=== PATIENT | male | born 1980 | race Caucasian/White ===

== ENCOUNTER 2020-07-04 18:45 | Emergency (ER) | payer SELFPAY ==
--- NOTE | 2020-07-04 18:55 | ER Document Report ---
ED Medical Screen (RME) - General Chief Complaint: Rectal Pain Stated Complaint: RECTAL PAIN Time Seen by Provider: 07/04/20 18:48 Primary Care Provider: [facility] [Provider Group] - Follow up as needed KATIE FELIX MD [Primary Care Provider] - Follow up as needed JOELLE BEST MD [ACTIVE STAFF] - Follow up as needed Mode of Arrival: Ambulatory Information source: Patient Notes: 39-year-old male presented to ED for complaint of rectal pain. He states is been hurting for a long time. He states he went to [facility] and they referred him to [facility] for surgery. He states they cannot give him a time on Thursday can see him and he states he is in a lot of pain. He states he has been using prescription drugs for the hemorrhoids for a long time and they are not helping and it is not getting any better. TRAVEL OUTSIDE OF THE [place] IN LAST 30 DAYS: No - HPI Onset: Other - Chronic Onset/Duration: Intermittent Quality of pain: Achy, Throbbing Severity: Moderate - Much worse when he has a bowel movement Pain Level: 4 Associated Symptoms: Other - He states that the hemorrhoids are worse today than they have been. Exacerbated by: Other - Bowel movement Relieved by: Denies Similar symptoms previously: Yes Recently seen / treated by doctor: Yes - Related Data Smoking: Non-smoker Frequency of alcohol use: Rare Drug Abuse: None Allergies/Adverse Reactions: No Known Allergies Allergy (Verified 11/30/14 05:26) Past Medical History - General Information source: Patient - Social History Cigarette use (# per day): No Frequency of alcohol use: Rare Drug Abuse: None Lives with: Family Family history: Reviewed & Not Pertinent - Past Medical History Cardiac Medical History: Reports: None Pulmonary Medical History: Reports: None EENT Medical History: Reports: None Neurological Medical History: Reports: None Endocrine Medical History: Reports: None Renal/ Medical History: Reports: None Malignancy Medical History: Reports None GI Medical History: Reports: Other - Chronic hemorrhoids Musculoskeltal Medical History: Reports Hx Musculoskeletal Trauma Skin Medical History: Reports None Psychiatric Medical History: Reports: Hx Anxiety Traumatic Medical History: Reports: None Infectious Medical History: Reports: None Past Surgical History: Reports: Hx Cholecystectomy, Hx Orthopedic Surgery - Right wrist tendon repair - Immunizations Hx Diphtheria, Pertussis, Tetanus Vaccination: Yes - 2019 Review of Systems - Review of Systems Constitutional: No symptoms reported EENT: No symptoms reported Cardiovascular: No symptoms reported Respiratory: No symptoms reported Gastrointestinal: Other - External hemorrhoids Genitourinary: No symptoms reported Male Genitourinary: No symptoms reported Musculoskeletal: No symptoms reported Skin: No symptoms reported Hematologic/Lymphatic: No symptoms reported Neurological/Psychological: No symptoms reported -: Yes All other systems reviewed and negative Physical Exam - Vital signs Vitals: Temp Pulse Resp BP Pulse Ox 99.0 F 65 18 115/75 97 07/04/20 18:49 07/04/20 18:49 07/04/20 18:49 07/04/20 18:49 07/04/20 18:49 Interpretation: Normal - General General appearance: Appears well, Alert - HEENT Head: Normocephalic, Atraumatic Eyes: Normal Pupils: PERRL - Respiratory Respiratory status: No respiratory distress Chest status: Nontender Breath sounds: Normal Chest palpation: Normal - Cardiovascular Rhythm: Regular Heart sounds: Normal auscultation Murmur: No - Abdominal Inspection: Normal Distension: No distension Bowel sounds: Normal Tenderness: Nontender Organomegaly: No organomegaly - Rectal Tenderness: Yes Hemorrhoids: External Notes: Rectal exam completed with Isatu Kearns RN very tender to palpation no thrombosed hemorrhoids but for tender thrombosed external noted - Back Back: Normal, Nontender - Extremities General upper extremity: Normal inspection, Nontender, Normal color, Normal ROM, Normal temperature General lower extremity: Normal inspection, Nontender, Normal color, Normal ROM, Normal temperature, Normal weight bearing. No: Yovanny's sign - Neurological Neuro grossly intact: Yes Cognition: Normal Orientation: AAOx4 Summer Coma Scale Eye Opening: Spontaneous [place] Coma Scale Verbal: Oriented [place] Coma Scale Motor: Obeys Commands [place] Coma Scale Total: 15 Speech: Normal Motor strength normal: LUE, RUE, LLE, RLE Sensory: Normal - Psychological Associated symptoms: Normal affect, Normal mood - Skin Skin Temperature: Warm Skin Moisture: Dry Skin Color: Normal Course - Re-evaluation Re-evalutation: 07/04/20 19:39 Patient was given prescriptions for Anusol and Colace. He was also given a doughnut to reduce pressure to the hemorrhoids. Patient was given instructions on use of witch sherrie on pads to help reduce the swelling. - Vital Signs Vital signs: Temp Pulse Resp BP Pulse Ox 99.0 F 65 18 115/75 97 07/04/20 18:49 07/04/20 18:49 07/04/20 18:49 07/04/20 18:49 07/04/20 18:49 Doctor's Discharge - Discharge Clinical Impression: External hemorrhoids Condition: Stable Disposition: HOME, SELF-CARE Additional Instructions: Hemorrhoids You have hemorrhoids. These are formed by enlargement of veins around the anus. The cause is increased pressure in the veins, from or straining at bowel movements. Hemorrhoids often cause itching and bleeding with bowel movements. When a hemorrhoid becomes clotted, severe pain and swelling result. Soothing creams and suppositories are often prescribed. Warm sitz-baths may also decrease pain, swelling, and itching. Eat a high-fiber diet. Stool softeners such as Metamucil will help. Keep the area very clean. Medicated cleansing pads (such as Tucks) are useful after bowel movements. A hose-mounted shower unit (like a shower massager at low water pressure) can be used to clean around tender hemorrhoid tags. You should call the doctor or return if you develop fever, increasing pain, or an enlarging mass around the anus, or if you simply fail to improve with treatment. FOLLOW-UP CARE: If you have been referred to a physician for follow-up care, call the physicians office for an appointment as you were instructed or within the next two days. If you experience worsening or a significant change in your symptoms, notify the physician immediately or return to the Emergency Department at any time for re-evaluation. Prescriptions: Hydrocortisone Acetate [Anusol-Hc] 25 mg RC Q6 PRN #20 supp.rect PRN Reason: For Pain Scale 3-4 Docusate Sodium [Colace 100 mg Capsule] 100 mg PO BID #60 capsule Referrals: KATIE FELIX MD [Primary Care Provider] - Follow up as needed JOELLE BEST MD [ACTIVE STAFF] - Follow up as needed [facility] [Provider Group] - Follow up as needed
[2020-07-04 19:39] VITALS: BP 123/76
== END 2020-07-04 19:20 | disposition home or self-care (01) ==
LOC: ER 18:45
DX: K64.4 Residual hemorrhoidal skin tags (principal); K62.89 Other specified diseases of anus and rectum; Z79.899 Other long term (current) drug therapy
CPT/HCPCS: 99284